=== PATIENT | male | born 1975 | race Two or more races ===

== ENCOUNTER 2016-03-06 11:47 | Emergency (ER) | payer SELFPAY ==
[2016-03-06 11:54] VITALS: PULSE 70; TEMP 98.4; BMI 21.7
[2016-03-06] MEDS ORDERED: FLUORESCEIN SODIUM 1 MG APP OP ONE (11:59)
[2016-03-06] MEDS ORDERED: PROPARACAINE 0.5% OPHTH SOLN 15 ML BOTTLE OP ONE (11:59)
[2016-03-06] MEDS ORDERED: IBUPROFEN 600 MG TAB PO ONE (12:00)
--- NOTE | 2016-03-06 12:08 | EDPRACDOC ---
- General Information Chief Complaint: Chest Wall Pain Stated Complaint: CHEST PAIN/LEFT ARM PAIN Time Seen by Provider: 03/06/16 11:55 Information Source: Patient Mode of Arrival: Car Home Medications: Home Medications Ciprofloxacin HCl [Ciloxan 0.3% Ophth Soln 5 ml] 2 drops OD Q3H #5 ml 03/06/16 Ibuprofen 600 mg PO Q6H PRN #20 tablet 03/06/16 Prednisone [Deltasone, Orasone] 1 tabs PO BID #18 tab 03/06/16 Allergies/Adverse Reactions: Allergies Allergy/AdvReac Type Severity Reaction Status Date / Time No Known Allergies Allergy Unverified 03/06/16 11:54 - History of Present Illness Onset: YEST HPI: 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 THE PT HAS LEFT SHOULDER PAIN. HE ALSO C/O RIGHT EYE REDNESS. Location: Reports: Left Circumstances: Reports: Work related Relevant History: Reports: None Dominant Hand: Right Pain Severity: Mild Associated Signs & Symptoms: Reports: None ED Past Medical History - History Reviewed No Past Medical History: Yes Patient has no past medical history - Patient Medical History Psychological History: Denies: Depression Surgical History: Reports: No Significant History - Social Medical History Smoking Status: Never smoker ETOH: None Substance Abuse: None Lives In: Home EDM Review of Systems - Review of Systems ROS Negative Except as Marked: Yes All systems reviewed and were negative except as marked Eyes: Redness Musculoskeletal: Shoulder - Physical Exam Constitutional: Alert (Awake), No apparent distress Oriented to: Time, Person, Place Last recorded Vital Signs: Last Vital Signs Temp 98.4 F 03/06/16 11:50 Pulse 70 03/06/16 11:50 Resp 20 03/06/16 11:50 BP 115/66 03/06/16 11:50 Pulse Ox 97 03/06/16 11:50 Oxygen Pulse Oxygen Saturation 97 O2 Device Oxygen Flow Rate Fraction of Inspired Oxygen ( FIO2) - HEENT Head: Normal ( normocephalic) Eye Exam: Conjunctival Injection Oropharynx: Normal (Pharynx:Moist without exudate,Gums-no swelling) ENT EAC: Normal TMJ: Normal Nose: No Symptoms Reported (septum midline) Neck: Normal (FROM, trachea at midline) - Respiratory/Cardiovascular Respiratory: Normal - CTA (BBS clear to auscultation without adventitious sounds ) Cardiovascular: Normal (RRR without murmur, gallop or rub) - GI Auscultation: Normal (NABS) Palpation: Normal (Soft,No rebound or guarding, non distended) Tenderness: Non tender Medina's Sign: Negative - Musculoskeletal Back: Normal (Non-Tender) Extremities: Normal (Normal tone, Pulses 2+ No cyanosis or edema, FROM) - Integumentary Skin: Normal, Warm, Dry Lymphatics: Normal (no adenopathy) - Neurologic Memory Impaired: Normal Motor Function: Normal (Normal tone, Pulses 2+ No cyanosis or edema, FROM) Cranial Nerve: Normal (CN II-X11 intact sensation, strength 5/5) Cerebellar: Normal Mood Description: Normal Perception: Normal ED Shoulder Problem Exam - Musculoskeletal Clavicle: Normal Shoulder: Tender Arm: Normal Distal Function/Circulation: Normal ED Procedures - Eye Procedure Alcaine Drops Administered: Yes Progress: NO CORNEAL ABRASION OR FB - Diagnostic Imaging Shoulder Image interpreted by: Radiologist Normal exam. Chest Image interpreted by: Radiologist Negative. Decision Time to Discharge: 13:09 - Departure Yes I personally saw and evaluated the patient. Disposition: Home Condition: Fair Final Diagnosis: Left shoulder strain, Conjunctivitis, right eye Instructions: Rotator Cuff Injury (ED), Conjunctivitis (ED) Education/Counseling Given To: Patient Education/Counseling Given Regarding: Diagnosis, Treatment, Follow Up Referrals: None,No Provider [Primary Care Provider] - One Week Nixon eBrgeron MD [Staff Physician] - One Week Jonathan Chang MD [Staff Physician] - One Week Prescriptions: Ciprofloxacin HCl [Ciloxan 0.3% Ophth Soln 5 ml] 2 drops OD Q3H #5 ml Ibuprofen 600 mg PO Q6H PRN #20 tablet PRN Reason: Pain Prednisone [Deltasone, Orasone] 1 tabs PO BID #18 tab
[2016-03-06] MEDS ORDERED: PREDNISONE 20 MG TAB PO ONE (12:24)
--- NOTE | 2016-03-06 13:05 | DIRPT ---
CLINICAL DATA: Left anterior chest pain, left shoulder pain starting after repetitive work today EXAM: LEFT RIBS AND CHEST - 3+ VIEW COMPARISON: 07/07/2012 FINDINGS: Three views of the left ribs submitted. No acute infiltrate or pulmonary edema. No pneumothorax. There is no left rib fracture. IMPRESSION: Negative. Electronically Signed By: Ash Waters M.D. On: 03/06/2016 13:02
--- NOTE | 2016-03-06 13:07 | DIRPT ---
CLINICAL DATA: LEFT anterior chest pain and LEFT shoulder pain, was doing repetitive movement at work yesterday when pain started EXAM: LEFT SHOULDER - 2+ VIEW COMPARISON: None FINDINGS: Osseous mineralization normal. AC joint alignment normal. No acute fracture, dislocation or bone destruction. Visualized ribs unremarkable. IMPRESSION: Normal exam. Electronically Signed By: Chapito Trejo M.D. On: 03/06/2016 13:05
[2016-03-06 13:21] VITALS: BP 111/69
== END 2016-03-06 13:20 | disposition home or self-care (01) ==
LOC: ED 11:47
DX: H10.9 Unspecified conjunctivitis (principal); S46.912A Strain of unspecified muscle, fascia and tendon at shoulder and upper arm level, left arm, initial encounter; X58.XXXA Exposure to other specified factors, initial encounter; Y93.9 Activity, unspecified
CPT/HCPCS: 71101; 73030; 99283; J3490